=== PATIENT | male | born 1945 | race Asian ===

== ENCOUNTER → 2017-07-23 | Outpatient (CLI) | payer OTHER | END | disposition home or self-care (01) | LOC: PCVCCLINIC 12:14 | DX: I25.10 Atherosclerotic heart disease of native coronary artery without angina pectoris (principal); R21 Rash and other nonspecific skin eruption; R60.0 Localized edema; G47.00 Insomnia, unspecified; Z79.82 Long term (current) use of aspirin; Z79.899 Other long term (current) drug therapy | CPT/HCPCS: 93005; G0463 ==